=== PATIENT | female | born 1960 | race African-American/Black ===

== ENCOUNTER 2017-10-13 17:47 | Emergency (ER) | payer OTHER ==
[~2017-10-13] VITALS: Ht 152.4 cm; Wt 68.0 kg
[2017-10-13 17:47] VITALS: BP 148/88
[2017-10-13] MEDS ORDERED: HYDROMORPHONE INJ 2 MG/ML DISP.SYRIN ONE (18:07)
--- NOTE | 2017-10-13 18:16 | NUR ---
PT MEDICATED ORDERED. ASAD CATH SITE CLEANED AND COVERED. OK FOR D/C.
[2017-10-13] MEDS ORDERED: HYDROMORPHONE INJ 0.5 MG/0.5 ML SYRINGE IM ONE (18:30)
--- NOTE | 2017-10-13 18:54 | NUR ---
PT WAS PROVIDED W/ TRANSPORTATION. D/C INN STABLE CONDITION.
== END 2017-10-13 18:55 | disposition home or self-care (01) ==
LOC: ER 17:51
DX: C49.0 Malignant neoplasm of connective and soft tissue of head, face and neck (principal); G89.29 Other chronic pain; F11.20 Opioid dependence, uncomplicated; Z88.8 Allergy status to other drugs, medicaments and biological substances; Z85.819 Personal history of malignant neoplasm of unspecified site of lip, oral cavity, and pharynx; Z87.442 Personal history of urinary calculi; Z87.39 Personal history of other diseases of the musculoskeletal system and connective tissue
CPT/HCPCS: 96372; 99283; A4606; J1170; Z7610